=== PATIENT | male | born 2000 | race Caucasian/White ===

== ENCOUNTER 2022-01-03 03:16 | Emergency (ER) | payer SELFPAY ==
[~2022-01-03] VITALS: Ht 188 cm; Wt 68.0 kg
[2022-01-03 03:44] VITALS: BP_SYST 126
[2022-01-03] MEDS ORDERED: IBUP-1969 PO (04:10)
[2022-01-03] MEDS ORDERED: DEXAMETHASONE SOD PHOSPHATE 10 MG/ML VIAL PO ONE (04:15)
[2022-01-03] MEDS ORDERED: IBUPROFEN 600 MG TABLET PO ONE (04:15)
[2022-01-03 04:49] VITALS: BP_SYST 122
== END 2022-01-03 04:49 | disposition home or self-care (01) ==
LOC: SED 03:16
DX: J02.9 Acute pharyngitis, unspecified (principal); M54.2 Cervicalgia
CPT/HCPCS: 87081; 99283; J1100